=== PATIENT | male | born 1955 | race Caucasian/White ===

== ENCOUNTER → 2020-02-29 15:46 | Outpatient (CLI) | payer OTHER, SELFPAY ==
[2020-02-29 16:47] LABS: Hemoglobin A1C% w Est Avg Glu 10.4 % (4.0-6.0)
[2020-02-29 16:50] LABS: Alanine Aminotransferase 33 IU/L (<50); Albumin 4.2 g/dL (3.5-5.0); Albumin Globulin Ratio 1.4 (1.0-2.8); Alkaline Phosphatase 175 U/L (38-126); Aspartate Aminotransferase 24 IU/L (17-59); BUN Creatinine Ratio 30.8 (6-22); Bilirubin Total 0.3 mg/dL (0.2-1.3); Blood Urea Nitrogen 20 mg/dL (9-20); Calcium 9.1 mg/dL (8.4-10.2); Carbon Dioxide 30 mmol/L (22-32); Chloride 103 mmol/L (98-107); Estimated Glomerular Filt Rate > 60.0 mL/min (>60); Globulin 3.1 g/dL (1.7-4.1); Glucose 267 mg/dL (80-110); HEMOLYSIS 16 (0-50); Potassium 3.9 mmol/L (3.4-5.1); Sodium 136 mmol/L (137-145); Total Protein 7.3 g/dL (6.3-8.2)
[2020-02-29 16:59] LABS: Creatinine Urine Random 87.7 mg/dL
[2020-02-29 17:04] LABS: Microalbumi Creatinin Ratio Ur 11.4 ug/mg CR (<30)
== END ==
PROVIDERS: PCP Registered Nurse; Referring Provider Registered Nurse; Visit Provider Registered Nurse
DX: E11.9 Type 2 diabetes mellitus without complications (principal)
CPT/HCPCS: 36415; 80053; 82043; 82570; 83036

== ENCOUNTER → 2020-12-09 18:25 | Outpatient (CLI) | payer OTHER, SELFPAY ==
--- NOTE | 2020-12-09 18:26 | DI.RAD.S_ITS ---
PROCEDURE: XR KNEE LT 3V INDICATIONS: pain ongoing TECHNIQUE: 3 views of the knee were acquired. COMPARISON: None. FINDINGS: Bones: Moderate osteophytosis and degenerative change of the patellofemoral compartment. Avulsion fracture of the lateral patella. The remaining visualized osseous structures appear maintained. No suspicious bony lesions. Soft tissues: Small joint effusion. No suspicious soft tissue calcifications. IMPRESSION: Avulsion fracture of the lateral patella. Dictated by: Geovanny Handley M.D. on 12/10/2020 at 8:56 Approved by: Geovanny Handley M.D. on 12/10/2020 at 9:00
--- NOTE | 2020-12-09 18:26 | DI.RAD.S_ITS ---
PROCEDURE: XR KNEE RT 3V INDICATIONS: pain ongoing TECHNIQUE: 3 views of the knee were acquired. COMPARISON: None. FINDINGS: Bones: No fractures or dislocations. Mild to moderate arthrosis of the patellofemoral compartment with osteophytosis and contour regularity. Mild medial joint space loss with sclerosis of the tibial plateau. No suspicious bony lesions. Soft tissues: Small joint effusion. No suspicious soft tissue calcifications. IMPRESSION: No acute osseous abnormality. Dictated by: Geovanny Handley M.D. on 12/10/2020 at 9:01 Approved by: Geovanny Handley M.D. on 12/10/2020 at 9:02
== END ==
PROVIDERS: PCP Nurse Practitioner Family; Referring Provider Nurse Practitioner Family; Visit Provider Nurse Practitioner Family
DX: S82.092A Other fracture of left patella, initial encounter for closed fracture; M25.562 Pain in left knee; M25.561 Pain in right knee; G89.29 Other chronic pain; X58.XXXA Exposure to other specified factors, initial encounter
CPT/HCPCS: 73562

== ENCOUNTER → 2021-03-19 16:50 | Outpatient (CLI) | payer OTHER, SELFPAY ==
--- NOTE | 2021-03-19 16:56 | DI.RAD.S_ITS ---
PROCEDURE: XR SHOULDER RT MIN 2V INDICATIONS: pain TECHNIQUE: 3 views of the shoulder were acquired. COMPARISON: None. FINDINGS: Bones: No fractures or dislocations. No suspicious bony lesions. Moderate right shoulder DJD. There is osteophytes at the inferior humeral head and distal clavicle. Visualized ribs appear intact. Soft tissues: No suspicious soft tissue calcifications. IMPRESSION: Moderate right shoulder DJD. Dictated by: Wes Chamberlain M.D. on 03/20/2021 at 8:20 Approved by: Wes Chamberlain M.D. on 03/20/2021 at 8:21
--- NOTE | 2021-03-19 16:56 | DI.RAD.S_ITS ---
PROCEDURE: XR SHOULDER LT MIN 2V INDICATIONS: pain TECHNIQUE: 3 views of the shoulder were acquired. COMPARISON: None. FINDINGS: Bones: No fractures or dislocations. No suspicious bony lesions. Sgsw-ua-baerlmnn degenerative change. Visualized ribs appear intact. Soft tissues: No suspicious soft tissue calcifications. IMPRESSION: Dvfd-as-gnkbyjim left shoulder DJD. Dictated by: Wse Chamberlain M.D. on 03/20/2021 at 8:22 Approved by: Wes Chamberlain M.D. on 03/20/2021 at 8:22
--- NOTE | 2021-03-19 16:56 | DI.RAD.S_ITS ---
PROCEDURE: XR HIP W PEL IF DONE LT 2V INDICATIONS: pain TECHNIQUE: AP pelvis with lateral view(s) of the left hip(s). COMPARISON: None. FINDINGS: Bones: No fractures or dislocations. Pelvic ring appears intact. No suspicious bony lesions. There is an asymmetrically prominent spur off the left superior acetabulum. Mild and symmetric joint space loss between right and left femoroacetabular joints. Soft tissues: The visualized bowel gas pattern is normal. No suspicious soft tissue calcifications. IMPRESSION: 1. Asymmetric left superior acetabular spurring. 2. Otherwise symmetric and mild degeneration. Dictated by: Siena Lowery M.D. on 03/20/2021 at 10:29 Approved by: Siena Lowery M.D. on 03/20/2021 at 10:31
--- NOTE | 2021-03-19 16:56 | DI.RAD.S_ITS ---
PROCEDURE: XR ELBOW LT 2V INDICATIONS: pain TECHNIQUE: 3 views of the elbow were acquired. COMPARISON: None. FINDINGS: Bones: No fractures identified. No dislocations. No suspicious bony lesions. Soft tissues: No posterior elbow joint effusion. No suspicious soft tissue calcifications. IMPRESSION: No acute osseous abnormality. If clinically indicated follow-up radiographs in 10-14 days may be helpful for further evaluation. Dictated by: Wes Chamberlain M.D. on 03/20/2021 at 8:18 Approved by: Wes Chamberlain M.D. on 03/20/2021 at 8:20
== END ==
PROVIDERS: PCP Nurse Practitioner Family; Referring Provider Nurse Practitioner Family; Visit Provider Nurse Practitioner Family
DX: M19.011 Primary osteoarthritis, right shoulder (principal); M19.012 Primary osteoarthritis, left shoulder; M16.12 Unilateral primary osteoarthritis, left hip; M25.50 Pain in unspecified joint
CPT/HCPCS: 73030; 73070; 73502

== ENCOUNTER → 2021-09-10 16:31 | Outpatient (CLI) | payer OTHER, SELFPAY ==
--- NOTE | 2021-09-10 16:33 | DI.RAD.S_ITS ---
PROCEDURE: XR LUMBAR SPINE 2-3V INDICATIONS: chronic back pain TECHNIQUE: 3 views of the lumbar spine were acquired. COMPARISON: None. FINDINGS: Bones: 5 cui-asd-xcqyjgb vertebrae are present. There is normal bony alignment. No vertebral body compression fractures. No suspicious bony lesions. Mild levocurvature. Jicp-st-gyjztmif degenerative disc disease and facet arthropathy throughout the lumbar spine. Soft tissues: Overlying bowel gas pattern is normal. No suspicious soft tissue calcifications. IMPRESSION: Dvpv-ug-cfnjlmmj degenerative disc and facet disease. Dictated by: Alecia Saul M.D. on 09/11/2021 at 17:41 Approved by: Alecia Saul M.D. on 09/11/2021 at 17:42
[2021-09-10 16:56] LABS: Add Manual Diff / Slide Review NO; Basophils Absolute Auto 100 /uL (0-100); Basophils Percent Auto 1.1 % (0-2); Eosinophils Absolute Auto 100 /uL (0-450); Eosinophils Percent Auto 1.5 % (2-4); Hematocrit 44.2 % (41-53); Hemoglobin 16.1 g/dL (13.5-17.5); Lymphocytes Absolute Auto 2700 /uL (1100-4500); Lymphocytes Percent Auto 33.1 % (25-40); Mean Corpuscular HGB Conc 36.4 % (30-36); Mean Corpuscular Hemoglobin 34.2 PG (26-34); Monocytes Absolute Auto 700 /uL (0-900); Monocytes Percent Auto 8.3 % (3-14); Neutrophils Absolute Auto 4500 /uL (1500-7000); Platelet Count 230 X10^3/uL (150-400); White Blood Cell Count 8.1 X10^3/uL (4.5-11.0)
[2021-09-10 17:16] LABS: Hemoglobin A1C% w Est Avg Glu 8.3 % (4.0-6.0)
[2021-09-10 17:21] LABS: Alanine Aminotransferase 24 IU/L (<50); Albumin 4.5 g/dL (3.5-5.0); Albumin Globulin Ratio 1.6 (1.0-2.8); Alkaline Phosphatase 159 U/L (38-126); Aspartate Aminotransferase 23 IU/L (17-59); BUN Creatinine Ratio 30.3 (6-22); Bilirubin Total 0.5 mg/dL (0.2-1.3); Blood Urea Nitrogen 20 mg/dL (9-20); Calcium 9.1 mg/dL (8.4-10.2); Carbon Dioxide 32 mmol/L (22-32); Chloride 98 mmol/L (98-107); Cholesterol 221 mg/dL (140-199); Estimated Glomerular Filt Rate > 60 mL/min (>60); Globulin 2.9 g/dL (1.7-4.1); Glucose 246 mg/dL (80-110); HDL Cholesterol 53 mg/dL (40-60); Potassium 4.4 mmol/L (3.4-5.1); Sodium 135 mmol/L (137-145); Total Protein 7.4 g/dL (6.3-8.2)
[2021-09-10 17:28] LABS: HEMOLYSIS 28 (0-50)
[2021-09-10 17:31] LABS: Triglycerides 788 mg/dL (35-150)
[2021-09-10 17:49] LABS: Prostate Specific Antigen Scrn 0.716 ng/mL (0.1-4.0); TSH w/ Reflex to FT4 1.87 uIU/mL (0.47-4.68)
[2021-09-10 18:21] LABS: Creatinine Urine Random 98.8 mg/dL
[2021-09-10 18:26] LABS: Microalbumi Creatinin Ratio Ur 10.1 ug/mg CR (<30)
== END ==
PROVIDERS: PCP Pediatrics; Referring Provider Pediatrics; Visit Provider Pediatrics
DX: M47.816 Spondylosis without myelopathy or radiculopathy, lumbar region (principal); Z12.5 Encounter for screening for malignant neoplasm of prostate; M51.36 Other intervertebral disc degeneration, lumbar region; Z13.220 Encounter for screening for lipoid disorders; M54.9 Dorsalgia, unspecified; M19.90 Unspecified osteoarthritis, unspecified site; E11.9 Type 2 diabetes mellitus without complications; F32.9 Major depressive disorder, single episode, unspecified; F41.9 Anxiety disorder, unspecified; M25.50 Pain in unspecified joint; G89.29 Other chronic pain
CPT/HCPCS: 36415; 72100; 80053; 80061; 82043; 82570; 83036; 84443; 85025; G0103

== ENCOUNTER → 2021-09-10 16:50 | Outpatient (CLI) | payer OTHER, SELFPAY | PROVIDERS: PCP Pediatrics; Referring Provider Pediatrics; Visit Provider Pediatrics | DX: M54.9 Dorsalgia, unspecified (principal); G89.29 Other chronic pain ==

== ENCOUNTER → 2021-09-29 18:26 | Outpatient (CLI) | payer OTHER, SELFPAY ==
--- NOTE | 2021-09-29 18:30 | DI.MRI.S_ITS ---
PROCEDURE: MR LUMBAR SPINE WO CON INDICATIONS: Dorsalgia, unspecified TECHNIQUE: Noncontrast sagittal T1 spin echo and T2 fast echo, sagittal STIR, and T2 fast spin echo through the lumbar spine. In cases with scoliosis, additional coronal T2 fast spin echo may be performed. COMPARISON: None. FINDINGS: Image quality: Excellent. Alignment and Curvature: There is normal bony alignment. Bone Marrow: Marrow is of normal overall signal. No acute vertebral body compression fractures. Spinal Cord: Conus medullaris terminates at the L1 level. Visualized cord demonstrates normal signal and size. Paraspinous Soft Tissues: No paravertebral masses. T12-L1: Normal appearance. L1-L2: Normal appearance. L2-L3: Disc space narrowing with circumferential disc bulge results in mild central stenosis. Mild bilateral foraminal stenosis. L3-L4: Disc space narrowing with circumferential disc bulge and hypertrophic facet joints results in severe central stenosis. Moderate bilateral foraminal stenosis. L4-L5: A disc space narrowing with circumferential disc bulge and hypertrophic facet joints combined with ligamentum flavum laxity to result in moderate central stenosis. Moderate right and severe left foraminal stenosis L5-S1: Disc space narrowing with circumferential disc bulge present. There is a superimposed central protrusion with inferior migration resulting in pepo-xf-oigdjmlm central stenosis. Severe right and left foraminal stenosis present. IMPRESSION: 1. Multilevel degenerative disc disease and arthropathy results in varying degrees of central and foraminal stenosis including severe central stenosis at L3-4 and severe bilateral foraminal stenosis at L5-S1 Approved by: Robert Fuentes M.D. on 09/30/2021 at 11:52
== END ==
PROVIDERS: PCP Pediatrics; Referring Provider Pediatrics; Visit Provider Pediatrics
DX: M51.36 Other intervertebral disc degeneration, lumbar region (principal); M51.37 Other intervertebral disc degeneration, lumbosacral region; M47.816 Spondylosis without myelopathy or radiculopathy, lumbar region; M47.817 Spondylosis without myelopathy or radiculopathy, lumbosacral region; M48.061 Spinal stenosis, lumbar region without neurogenic claudication; M48.07 Spinal stenosis, lumbosacral region; M54.9 Dorsalgia, unspecified; G89.29 Other chronic pain
CPT/HCPCS: 72148

== ENCOUNTER → 2021-11-14 09:35 | Outpatient (CLI) | payer OTHER, SELFPAY ==
--- NOTE | 2021-11-14 09:36 | DI.CT.S_ITS ---
PROCEDURE: CT UE RT WO CON INDICATIONS: EVAL CUFF AND GLENOID VERSION TECHNIQUE: Noncontrast 1-1.5 mm thick sections acquired from the acromioclavicular joint to the inferior scapula, with coronal and sagittal reformatting. COMPARISON: [facility], CR, XR SHOULDER RT MIN 2V, 03/19/2021, 16:55. FINDINGS: Image quality: Excellent. Bones: There are severe osteoarthritic changes of the glenohumeral joint with joint space narrowing, subchondral sclerosis, and subchondral cystic changes as well as prominent inferior osteophytosis. There is glenoid retroversion of approximately -18?. Mild osteoarthritic changes are demonstrated at the acromioclavicular joint. Soft tissues: No glenohumeral joint effusion. There are a few small indistinct calcifications within the axillary pouch consistent with clustered joint bodies. Limited evaluation of the rotator cuff on CT demonstrates no definite full-thickness tear or tendon retraction. No fatty muscle atrophy. IMPRESSION: 1. Severe osteoarthritic changes of the glenohumeral joint as described. 2. Glenoid retroversion of -18 degrees. 3. No definite full-thickness rotator cuff tear or tendon retraction. Dictated by: Shyam Orosco M.D. on 11/16/2021 at 1:24 Approved by: Shyam Orosco M.D. on 11/16/2021 at 1:29
== END ==
PROVIDERS: PCP Pediatrics; Referring Provider Orthopaedic Surgery; Visit Provider Orthopaedic Surgery
DX: M19.011 Primary osteoarthritis, right shoulder (principal)
CPT/HCPCS: 73200

== ENCOUNTER → 2021-12-25 08:43 | Outpatient (CLI) | payer OTHER, SELFPAY ==
[2021-12-25 11:21] LABS: Add Manual Diff / Slide Review NO; Basophils Absolute Auto 100 /uL (0-100); Basophils Percent Auto 0.9 % (0-2); Eosinophils Absolute Auto 100 /uL (0-450); Eosinophils Percent Auto 1.2 % (2-4); Hematocrit 42.3 % (41-53); Hemoglobin 14.9 g/dL (13.5-17.5); Lymphocytes Absolute Auto 1900 /uL (1100-4500); Lymphocytes Percent Auto 31.6 % (25-40); Mean Corpuscular HGB Conc 35.3 % (30-36); Mean Corpuscular Hemoglobin 32.8 PG (26-34); Mean Corpuscular Volume 93.1 fL (80-100); Monocytes Absolute Auto 400 /uL (0-900); Monocytes Percent Auto 6.9 % (3-14); Neutrophils Absolute Auto 3600 /uL (1500-7000); Neutrophils Percent Auto 59.4 % (50-75); Platelet Count 199 X10^3/uL (150-400); Red Blood Cell Count 4.54 X10^6/uL (4.5-5.9); Red Cell Distribution Width 12.8 % (11.6-14.8)
[2021-12-25 11:56] LABS: BUN Creatinine Ratio 20.3 (6-22); Blood Urea Nitrogen 15 mg/dL (9-20); Calcium 8.9 mg/dL (8.4-10.2); Carbon Dioxide 28 mmol/L (22-32); Chloride 100 mmol/L (98-107); Estimated Glomerular Filt Rate > 60 mL/min (>60); Glucose 181 mg/dL (80-110); HEMOLYSIS < 15 (0-50); Potassium 4.1 mmol/L (3.4-5.1); Sodium 137 mmol/L (137-145)
== END ==
PROVIDERS: PCP Pediatrics; Referring Provider Orthopaedic Surgery; Visit Provider Orthopaedic Surgery
DX: Z01.818 Encounter for other preprocedural examination (principal); M25.511 Pain in right shoulder; Z01.812 Encounter for preprocedural laboratory examination
CPT/HCPCS: 36415; 80048; 85025; 93005; 93010

== ENCOUNTER → 2022-01-18 15:07 | Outpatient (CLI) | payer OTHER, SELFPAY ==
[2022-01-18 17:33] LABS: COVID19 -Nasal RAPID Negative (Negative)
== END ==
PROVIDERS: PCP Pediatrics; Referring Provider Orthopaedic Surgery; Visit Provider Orthopaedic Surgery
DX: Z20.822 Contact with and (suspected) exposure to COVID-19 (principal)
CPT/HCPCS: 87635; C9803

== ENCOUNTER 2022-01-20 07:32 | Day surgery (SDC) | payer OTHER, SELFPAY ==
[2022-01-11 09:36] VITALS: BMI 31.9
--- NOTE | 2022-01-20 08:04 | PM.PREOP ---
Pre-operative Note COVID-19 COVID-19 status: Negative Result date/Date tested (Pos, Neg/Pending): 01/18/22 Interval Note History & Physical reviewed/Exam performed by Physician: Yes Changes to H&P: No
[2022-01-20] MEDS: ACETAMINOPHEN 325 MG TABLET 975 MG PO (08:07)
[2022-01-20] MEDS: PREGABALIN 75 MG CAPSULE PO (08:07)
[2022-01-20] MEDS: CELECOXIB 200 MG CAPSULE PO (08:07)
[2022-01-20] MEDS: LACTATED RINGERS 1,000 ML 100 ML IV (08:09)
[2022-01-20 08:12] VITALS: BP 127/68; PULSE 65; RESP 16; TEMP 36.4; O2SAT 97; BMI 31.9
[2022-01-20 09:20] VITALS: BP 110/68; PULSE 65; RESP 16; O2SAT 98
--- NOTE | 2022-01-20 09:44 | SUR.PREOP ---
Block start time [0753 ] . Monitoring initiated and maintained throughout procedure. Oxygen and medications given per anesthesiologist. Patient remained stable throughout procedure, no adverse reactions noted. Block end time [0818 ].
--- NOTE | 2022-01-20 09:46 | SUR.PREOP ---
see block documentation.
--- NOTE | 2022-01-20 09:47 | SUR.PREOP ---
placed right arm in sling upon discharge.
== END 2022-01-20 07:35 | disposition home or self-care (01) ==
LOC: OR 07:34 → AC 09:50
PROVIDERS: PCP Pediatrics; Referring Provider Orthopaedic Surgery; Visit Provider Orthopaedic Surgery
DX: M19.011 Primary osteoarthritis, right shoulder (principal); Z53.09 Procedure and treatment not carried out because of other contraindication
CPT/HCPCS: 23472; J1100; J2250; J2405; J2704; J3010

== ENCOUNTER 2022-01-22 13:22 | Day surgery (SDC) | payer OTHER, SELFPAY ==
[2022-01-20 15:23] VITALS: BMI 31.6
[2022-01-22] VITALS (14 sets, daily range): BP systolic 91–148; BP diastolic 56–82; PULSE 68–95; RESP 11–24; TEMP 36–37; O2SAT 84–98; BMI 31.6
[2022-01-22] MEDS: LACTATED RINGERS 1,000 ML 42 ML IV ×2 (14:11→17:19)
[2022-01-22 14:13] LABS: COVID19 -Nasal RAPID Negative (Negative)
--- NOTE | 2022-01-22 14:16 | DI.RAD.S_ITS ---
PROCEDURE: XR SHOULDER RT 1V INDICATIONS: post op total shoulder rt TECHNIQUE: A single view of the shoulder were acquired. COMPARISON: [facility], , XR SHOULDER RT MIN 2V, 03/19/2021, 16:55. FINDINGS: Bones: Postoperative changes of total right shoulder replacement without radiographic complication Soft tissues: No suspicious soft tissue calcifications. IMPRESSION: Postoperative changes total right shoulder replacement without radiographic complication Dictated by: Brian Hill M.D. on 01/23/2022 at 10:47 Approved by: Brian Hill M.D. on 01/23/2022 at 10:47
--- NOTE | 2022-01-22 14:16 | PM.PREOP ---
Pre-operative Note COVID-19 COVID-19 status: Negative Result date/Date tested (Pos, Neg/Pending): 01/22/22 Interval Note History & Physical reviewed/Exam performed by Physician: Yes Changes to H&P: No
--- NOTE | 2022-01-22 14:22 | SUR.PREOP ---
Block start time [1420] . Monitoring initiated and maintained throughout procedure. Oxygen and medications given per anesthesiologist instructions. Patient remained stable throughout procedure, no adverse reactions noted. Block end time [1430]. No complications. VSS.
[2022-01-22] MEDS: ACETAMINOPHEN 325 MG TABLET 975 MG PO (14:37)
[2022-01-22] MEDS: CELECOXIB 200 MG CAPSULE PO (14:37)
[2022-01-22] MEDS: PREGABALIN 75 MG CAPSULE PO (14:37)
[2022-01-22] MEDS: CEFAZOLIN 2 GM/100 ML PREMIX 100 ML IV ×2 (15:37→22:20)
[2022-01-22] MEDS: TRANEXAMIC ACID 1,000 MG VIAL 2000 MG INJ ×2 (16:01→17:25)
--- NOTE | 2022-01-22 16:03 | PC.NURSE ---
Day shift: Pt is not on AC unit at this time.
--- NOTE | 2022-01-22 16:13 | SUR.OPER ---
Beach chair with Schlein shoulder positioner. Lower body on padded OR bed. Head in foam padded head cradle, secured with straps. Non-operative arm secured <90 degrees abduction. Pillow under knees. Safety belt at thigh. Cloth tape over blanket over lower legs.
[2022-01-22] MEDS: THROMBIN (RECOMBINANT) 5,000 UNIT VIAL 5000 UNIT TOP (16:22)
[2022-01-22] MEDS: BUPIVACAINE 0.25% (PF) 30 ML, EPINEPHrine 0.3 MG INJ (16:23)
[2022-01-22] MEDS: BUPIVACAINE 0.5% (PF) VIAL 30 ML INJ (16:24)
--- NOTE | 2022-01-22 18:00 | PM.OP.1 ---
Operative Date/Time/Diagnoses Date of procedure: 01/22/22 Time of procedure: 18:00 Pre-op diagnosis: Right shoulder osteoarthritis Post-op diagnosis: same Procedure & Clinicians Procedure: Right total shoulder Same procedure as scheduled: Yes Indications: The patient has had progressively worsening right shoulder pain with radiographic changes consistent with arthritis. Non-operative management has failed and the patient has requested total shoulder replacement. The risks, benefits and alternatives to surgery were discussed with the patient prior to proceeding. Risks discussed included, but were not limited to, failure to relieve pain, stiffness, infection, nerve damage, deep venous thrombosis, pulmonary embolism, stroke, coma, heart attack, permanent paralysis and , as well as the potential need for eventual revision of the prosthetic. Surgeon: Dionisio Wilhelm Machine Container Washer: Mony Givens Click Yes if Unassisted: No Anesthesia Type: General, Peripheral nerve block and Local Operative Notes Findings: Severe osteoarthritis of the right shoulder Closure Type: primary Specimen(s): none sent Prosthetic devices, grafts, tissues, transplants, or devices: Implants used in this procedure manufactured by the [employer] and included a 50 mm all polyethylene pegged glenoid with E plus polyethylene, a size 2 canal sparing humeral stem and a 50 x 18 mm neutral humeral head and neck. Applied: implant(s) Estimated Blood Loss (mL): 300 Blood products transfused: none Procedure in detail: The patient was seen in the pre-operative area, where the patient identified the right shoulder as the operative site and this was marked with my initials. The patient received pre-operative antibiotics, underwent an interscalene block, and was taken to the operating room and placed on the operative table in the supine position. After satisfactory anesthesia, a full ?time out? was performed. The patient was repositioned in the ?beach chair? position using a dedicated positioner. All pressure points were well padded, and the knees were slightly bent to prevent tension on the sciatic nerves. The right arm was prepared from the fingers to the base of the neck with ChloroPrep in the usual fashion and draped through sterile drapes. An approximately 15 cm incision was created, starting at the clavicle above the coracoid process and extended towards the deltoid insertion. The deltopectoral interval was used to access the shoulder. The cephalic vein was taken laterally. A self retaining retractor was placed. The upper centimeter of the pectoralis major tendon was released. The ?three sisters? were identified and cauterized. The axillary nerve was palpated and protected throughout the case. The biceps was released from its groove and tenodesed over the top of the pectoralis major tendon. The subscapularis was released from the lesser tuberosity with a subscapularis peel and tagged for later repair. The shoulder was dislocated and a cutting guide was used for the proximal humeral osteotomy in 30 degrees of retroversion. Osteophytes were removed to appropriately size the humeral head. The guide pin was placed in the center of the proximal humerus using a trial humeral head. The collared Reamer was then used. The central Reamer was used for the body. A size 2 broach was placed. A proximal humeral protector was then placed. We then removed the self-retaining retractor and placed retractors to access the glenoid. The subscapularis was released with a ?360 degree release? with care being taken to protect the axillary nerve with the inferior portion of this procedure. The remnant of labrum and biceps stump were removed. The guide pin placed using the glenoid Sizer. The glenoid was appropriately reamed. The guide for the peripheral holes was used and the center hole enlarged. The trial glenoid was placed with good stability. We then cemented the final implant into place after irrigating the peg holes and drying them with thrombin-soaked Gelfoam. We returned our attention to the humerus, a trial humeral head was applied and a trial reduction performed. Stability was checked with 50% posterior translation with spontaneous reduction, 45? external rotation at the side with the subscapularis held in the repaired position and 70? of internal rotation in the ?scarecrow position?. This was felt to be satisfactory and the appropriate implants were opened. Five holes were drilled along the humeral osteotomy and #2 Ethibond sutures placed for eventual subscapularis repair. The humeral prosthetic was impacted into the humerus. The sutures were placed through the outer ring of the canal sparing stem. The humeral head was applied when the stem was still slightly proud and impacted to both seat the head and fully seat the stem. The joint was relocated one final time. The joint was irrigated and the subscapularis repaired to the previously placed sutures using Vincent-Fredi sutures. The top of the subscapularis was closed to the leading edge of the supraspinatus with a figure of 8 #2 Ethibond to close the rotator interval. The deltopectoral interval was closed with interrupted 0 Vicryl. The subcutaneous layer was closed with 3-0 Vicryl, and the skin with a running 3-0 V-Lock suture and Dermabond. An Aquacel Ag dressing was applied, the patient?s arm was placed in a sling, and the patient was taken to recovery having tolerated the procedure well. The services of Dr. Givens were necessary as a skilled children's nursery assistant to provide exposure, retraction to protect vital structures and positioning to access the glenoid and performed the procedure in a safe and expedient fashion. Without the assistance of a skilled children's nursery assistant procedure could not have been performed safely. Complications: none Post-operative Condition: stable Disposition: PACU Plan for aftercare: The patient will be allowed to use his hand in front of his body below shoulder level for the 1st 2 weeks and then will be advanced according to physical therapy protocol for standard total shoulder protocol. Due to the hour of the completion the procedure he will be admitted to the hospital overnight for pain control and will be discharged tomorrow morning.
--- NOTE | 2022-01-22 18:49 | PC.NURSE ---
Day shift: Pt in room from PACU at approx 1845. A&Ox4. Denies any pain or nausea. CMS ok rt hand. Radial pulse present. Placed on 1L NC and 94%. Oriented to room and call light. Call light in reach.
[2022-01-22] MEDS: ACETAMINOPHEN 325 MG TABLET 650 MG PO (20:31)
[2022-01-22] MEDS: IBUPROFEN 400 MG TABLET PO (20:32)
[2022-01-22] MEDS: METFORMIN XR 500 MG TABLET 1000 MG PO (20:32)
[2022-01-22] MEDS: DOCUSATE 100 MG CAPSULE PO (20:32)
[2022-01-22] MEDS: ASPIRIN EC 81 MG TABLET PO (20:32)
[2022-01-22] MEDS: LACTATED RINGERS 1,000 ML 100 ML IV (20:32)
[2022-01-22] MEDS: hydrOXYzine pamoate 25 MG CAPSULE PO (22:20)
[2022-01-22] MEDS: OXYCODONE IR 5 MG TABLET PO (22:20)
[2022-01-23] MEDS: ACETAMINOPHEN 325 MG TABLET 650 MG PO ×2 (00:33→05:01)
[2022-01-23] MEDS: IBUPROFEN 400 MG TABLET PO ×3 (00:34→08:43)
[2022-01-23] MEDS: OXYCODONE IR 5 MG TABLET PO ×2 (00:34→10:32)
[2022-01-23 04:35] VITALS: BP 121/65; PULSE 74; RESP 16; TEMP 36.8; O2SAT 95
[2022-01-23 05:06] LABS: Hematocrit 39.4 % (41-53); Hemoglobin 13.8 g/dL (13.5-17.5)
[2022-01-23] MEDS: LACTATED RINGERS 1,000 ML 100 ML IV (05:57)
[2022-01-23] MEDS: CEFAZOLIN 2 GM/100 ML PREMIX 100 ML IV (05:57)
--- NOTE | 2022-01-23 08:35 | PT.IIE ---
Current Diagnoses Primary osteoarthritis, right shoulder (01/22/22) Presence of unspecified artificial shoulder joint (01/22/22) Surgery Performed Operation Date: 01/22/22 14:45 Actual Procedures p Total Shoulder Arthroplasty(Right) - Dionisio Wilhelm MD Surgical History (This Medical Record has been edited. Action required.) Anesthesia H/O vasectomy History of hernia repair (~1993) Medical History (This Medical Record has been edited. Action required.) Anxiety (~1989) Carpal tunnel syndrome (~1999) Carpal tunnel syndrome of left wrist (2008) Chicken pox Chronic back pain (~1979) Chronic knee pain Hepatitis (~1969) Joint pain Osteoarthritis (~1994) Patella fracture (11/2020) Positive PPD (~1991) Post-nasal drip Shoulder pain (~1984) Physical Therapy Inpatient Evaluation/Re-Eval M1 PT/OT-IP Prior Functional Status Start: 01/23/22 12:28 Freq: NEEDED Status: Active Protocol: Document 01/23/22 08:35 AB (Rec: 01/23/22 12:39 AB [id number]) Medical Review Prior Functional Status Medical History Reviewed Yes Communication able to make needs known Mobility and Gait pt stated that he is independent with all mobilities and ambulation without AD Social History Household Members spouse,children Living Arrangements House Number of Floors (Floors) Two Floors Number of Stairs To Enter/Railing? 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 M2 PT-IP Current Condition Start: 01/23/22 12:28 Freq: NEEDED Status: Active Protocol: Document 01/23/22 08:35 AB (Rec: 01/23/22 12:39 AB [id number]) Physical Therapy Current Condition Current Condition Evaluation Date 01/23/22 Treatment Diagnosis s/p R TSA; difficulty in walking Onset Date 01/22/22 M3 PT-IP Subjective Start: 01/23/22 12:28 Freq: NEEDED Status: Active Protocol: Document 01/23/22 08:35 AB (Rec: 01/23/22 12:39 AB [id number]) Subjective Physical Therapy Visit Type Type Initial Evaluation Visit Start Time 08:35 Visit Stop Time 09:25 Total Visit Minutes 50 Number of COMPRESS TRUCKER Visits 0 Physical Therapy Visit Comments Patient Comments agreeable to do PT Therapy Pain Assessment Pain When Pain Assessed At Rest Pain Present Pain Present Pain Reported Location Right Shoulder Intensity 1 Scale Used Numeric (0 - 10) Pain Management Techniques Apply Cold,Modification of Treatment,Re-positioning, Timing of Activity with Medications M4 PT-IP Mobility and Gait Start: 01/23/22 12:28 Freq: NEEDED Status: Active Protocol: Document 01/23/22 08:35 AB (Rec: 01/23/22 12:39 AB [id number]) PT-Bed Mobility Assessment Supine to Sit Supine to Sit Standby Assistance PT-Transfer Assessment Sit to and From Stand Sit to and from Stand Standby Assistance Equipment Transfer Assistive Device Gait Belt Orthotic/Prosthetic Devices or Brace: Yes Transfers Transfer Destination Chair Transfer Technique Stand Step Pivot Transfer Ability Level of Assist Standby Assistance Comments Mobility Comments educated pt on shoulder precautions, pendulum exercise , elbow/wrist/hand exercises. pt completed supine to sit SBA . able to sit on EOB SBA. cued not to use R shoulder. educated on sling management. pt attempted to don sling but unable by himself and stated that he will have his spouse to assist him. declined caregiver training and stated that he can tell his spouse on how to manage sling. pt completed pendulum, elbow/ wrist/hand exercises. cues for safety and also educated on dressing techniques. pt ambulated in the hallway ~ 200 ft without AD SBA. completed up/down steps using L rail ascending SBA. ambulated back to his room. agreed to sit up on the chair. positioned on the chair. call light and table placed within reach. Gait Assessment Gait Gait Assistance Required: Standby Assistance Distance (Feet) 200 Able to Maintain Weight Bearing Status Yes During Gait Assistive Devices Assistive Device None,Gait Belt Orthotic/Prosthetic Devices or Brace: Yes Factors Limiting Gait Function Factors Limiting Gait Function Decreased Strength,Limited Range of Motion,Pain,Poor Balance Stair Climbing Assessment Evaluation Level of Assist On Stairs Standby Assistance Devices Stair Climbing Assistive Devices Left Railing Technique/Endurance Stair Climbing Technique Step Over Step Number of Steps Climbed 3 Query Text: Stair Climbing Set # Repetitions (reps) 2 PT-Balance Assessment Sitting Balance and Reactions Static Sitting Balance Ability Normal Dynamic Sitting Balance Ability Normal Standing Balance and Reactions Static Standing Balance Ability Good Dynamic Standing Balance Ability Good Device Used without AD M5 PT-IP Objective Assessments Start: 01/23/22 12:28 Freq: NEEDED Status: Active Protocol: Document 01/23/22 08:35 AB (Rec: 01/23/22 12:39 AB [id number]) Orientation Orientation/Cognition Level of Alertness Alert Orientation Name,Place,Situation Language Function Ability No Deficits Noted Safety Awareness Understands Safety Issues, Decreased Safety Awareness Memory Description No Deficits Noted Gross Range of Motion Lower Extremity ROM Assessment Within Functional Limits Strength Lower Extremity Strength Assessment Within Functional Limits Coordination Assessment Gross Coordination Gross Coordination WNL Sensation Assessment Sensation Gross Sensation WNL Muscle Tone Muscle Tone WNL Yes M6 PT-IP Treatment Start: 01/23/22 12:28 Freq: NEEDED Status: Active Protocol: Document 01/23/22 08:35 AB (Rec: 01/23/22 12:39 AB [id number]) Physical Therapy Treatment Exercises Exercises Shoulder Pendulums,Elbow Flexion/Extension,Wrist ROM, Hand ROM Education Education Provided Precautions,Weight Bearing Status,Post-Op Packet,Safety Brace Education Donning,Forest,Patient M7 PT-IP Assessment and Plan Start: 01/23/22 12:28 Freq: NEEDED Status: Active Protocol: Document 01/23/22 08:35 AB (Rec: 01/23/22 12:39 AB [id number]) PT Summary Assessment and Plan Potential Rehabilitation Potential Good Status of Condition at Evaluation Stable Summary Impairments Pain,ROM,Strength,Balance, Coordination,Sensation,Tone, Cognition,Bed Mobility, Transfers,Gait,Activity Tolerance Assessment Summary pt requiring SBA with mobility and plans to go home with spouse to assist him. pt has outpt PT scheduled. pt may go home when medically stable Goals Transfer Goal Independent Gait Goal Independent Gait Distance 300 Other Goals up/down 2 flights of steps L rail ascending mod I Days to Meet Goals 5 Frequency of Treatment Frequency Of Treatment Twice a Day Treatment Plan Physical Therapy Treatment Plan Bed Mobility Training,Transfer Training,Gait Training, Therapeutic Exercise,Balance Retraining,Post Op Education, Discharge Planning,Hot or Cold Pack,Neuromuscular Re-ed, Coordination Retraining,Manual Therapy Precautions Shoulder Precautions Sling,PROM,Internal Rotation to Body,No External Rotation, No Abduction,Forward Flexion to 90 degrees,Pendulums Weight Bearing Status Weight Bearing Status Non-Weight Bearing Allowed Weight Bearing Amount (enter % RUE NWB or #) (%) Recommendations To Nursing Amount of Assist Needed Standby Assistance Discharge Recommendations PT Discharge Recommendations Home with Assistance, Outpatient PT Transportation Needs at Discharge Private Vehicle
[2022-01-23] MEDS: buPROPion XL 150 MG TAB PO (08:43)
[2022-01-23] MEDS: METFORMIN XR 500 MG TABLET 1000 MG PO (08:43)
[2022-01-23] MEDS: ASPIRIN EC 81 MG TABLET PO (08:43)
[2022-01-23] MEDS: DOCUSATE 100 MG CAPSULE PO (08:43)
[2022-01-23] MEDS: SERTRALINE 50 MG TABLET 100 MG PO (08:43)
[2022-01-23] MEDS: INSULIN LISPRO 100 UNIT/ML 3ML VIAL SUBCUT (08:44)
[2022-01-23 09:13] VITALS: BP 110/54; PULSE 79; RESP 16; TEMP 37.1; O2SAT 93
--- NOTE | 2022-01-23 09:23 | PM.DS.1 ---
History of Present Illness History of Present Illness Date Patient Seen: 01/23/22 Time Patient Seen: 09:24 Chief complaint: OPB Narrative: Operative Date/Time/Diagnoses Date of procedure: 01/22/22 Time of procedure: 18:00 Pre-op diagnosis: Right shoulder osteoarthritis Post-op diagnosis: same Procedure & Clinicians Procedure: Right total shoulder Same procedure as scheduled: Yes Indications: The patient has had progressively worsening right shoulder pain with radiographic changes consistent with arthritis. Non-operative management has failed and the patient has requested total shoulder replacement. The risks, benefits and alternatives to surgery were discussed with the patient prior to proceeding. Risks discussed included, but were not limited to, failure to relieve pain, stiffness, infection, nerve damage, deep venous thrombosis, pulmonary embolism, stroke, coma, heart attack, permanent paralysis and , as well as the potential need for eventual revision of the prosthetic. Surgeon: Dionisio Wilhelm Splicer Helper: Mony Givens Click Yes if Unassisted: No Anesthesia Type: General, Peripheral nerve block and Local Operative Notes Findings: Severe osteoarthritis of the right shoulder Closure Type: primary Specimen(s): none sent Prosthetic devices, grafts, tissues, transplants, or devices: Implants used in this procedure manufactured by the [employer] and included a 50 mm all polyethylene pegged glenoid with E plus polyethylene, a size 2 canal sparing humeral stem and a 50 x 18 mm neutral humeral head and neck. Applied: implant(s) Estimated Blood Loss (mL): 300 Blood products transfused: none Discharge Providers Provider Discharge Date: 01/23/22 Primary care physician: Kt Baker MD Consults: 01/22/22 14:15 Consult to Anesthesiology Routine Comment: Consulting Provider: Anesthesiologist Reason for consultation: Regional block for post operative pain control 01/22/22 18:49 Consult to Discharge Planning Routine Comment: Consult to Physical Therapy Evaluate & Treat Comment: Physician Instructions: pendulums, PROM FF 90, ER 0, ABD 0, IR to body Discharge provider: Brianna Pastrana PA-C Summary Hospital Course Discharge Diagnosis: Right shoulder osteoarthritis, s/p total shoulder arthroplasty Hospital Course: Mr Gentile'tiara hospital course was unremarkable. On POD# 1 he was feeling well and wanted to go home. He was eating and voiding without difficulty and his pain was well-controlled w/ oral medications. 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 Aquacel dressing CDI, sling in place. Objective Labs Result Diagrams: 01/23/22 04:43 Labs: Laboratory Results - last 24 hr 01/22/22 01/23/22 13:48 04:43 Hgb 13.8 Hct 39.4 L SARS-CoV-2 (PCR) Negative [facility] Medical History (Updated 01/11/22 @ 10:13 by Arleen Cardenas RN) Anxiety (~1989) Carpal tunnel syndrome (~1999) Carpal tunnel syndrome of left wrist (2008) Chicken pox Chronic back pain (~1979) Chronic knee pain Hepatitis (~1969) Joint pain Osteoarthritis (~1994) Patella fracture (11/2020) Positive PPD (~1991) Post-nasal drip Shoulder pain (~1984) Surgical History (Updated 01/23/22 @ 09:32 by Brianna Pastrana PA-C) Anesthesia H/O vasectomy History of hernia repair (~1993) Family History (System 12/10/20 @ 10:14 by Zak Sheehan) Mother Diabetes mellitus Social History (System 12/10/20 @ 10:14 by Zak Sheehan) household members: spouse and children Smoking Status: Never smoker second hand exposure: No alcohol intake: former substance use type: does not use Discharge Assessment & Plan Assessment and Plan Assessment: Right shoulder osteoarthritis, s/p total shoulder arthroplasty Plan of Treatment: Discharge home. Multimodal pain control, outpt PT. Discharge Plan Discharge Plan Patient Disposition: Home Discharge orders & Medications Discharge Orders: Discharge (Order); Ordered 01/23/22 Ordered By: Brianna Pastrana Prescriptions: New oxycodone 5 mg Tablet 5 mg PO Q4H PRN (Reason: Pain, Moderate (4-6)) Qty: 60 0RF acetaminophen 325 mg Tablet 650 mg PO Q6HR Qty: 240 0RF aspirin 81 mg Tablet,Delayed Release (Dr/Ec) 81 mg PO BID Qty: 90 0RF docusate sodium 100 mg Capsule 100 mg PO BID PRN (Reason: constipation) Qty: 60 1RF hydroxyzine pamoate 25 mg Capsule 25 mg PO Q6H PRN (Reason: muscle spasm) Qty: 60 0RF Continued bupropion HCl 150 mg tablet extended release 24 hr See Rx Instructions .ROUTE .COMPLEX Qty: 90 0RF Dose Instruction: TAKE 1 TABLET BY MOUTH ONCE DAILY IN THE MORNING for anxiety with depression Rx Instructions: TAKE 1 TABLET BY MOUTH ONCE DAILY IN THE MORNING for anxiety with depression sertraline 100 mg tablet See Rx Instructions .ROUTE .COMPLEX Qty: 90 0RF Dose Instruction: TAKE ONE TABLET BY MOUTH ONE TIME DAILY for anxiety with depression Rx Instructions: TAKE ONE TABLET BY MOUTH ONE TIME DAILY for anxiety with depression metformin 500 mg tablet extended release 24 hr 1,000 mg PO BID Qty: 360 0RF ibuprofen 200 mg Tablet 400 mg PO DAILY PRN (Reason: Pain) naproxen sodium [Aleve] 220 mg Capsule 440 mg PO DAILY PRN (Reason: Pain) Follow up/Referrals: Kt Baker MD [Primary Care Provider] - Dionisio Wilhelm MD [Physician] - As previously scheduled (Follow up w/ Dr Wilhelm on 02/04/2022 @ 1:30 pm at [facility] in [place]) Diet/Activity/Treatments Diet: Diet as Tolerated Activity: You may use your hand in front of his body below shoulder level for the 1st 2 weeks and then will advance according to physical therapy protocol for standard total shoulder protocol. Sling on at most times; may have off to shower. Cold/Heat Therapy: Ice to shoulder as needed for pain. Skin/Wound/Dressing Care Report to your healthcare provider any signs of infection, such as:: chills, fever, night sweats, unusual drainage and unusual redness Dressing: May shower; leave Aquacel dressing in place until follow up appointment in office. No soaking incision. Call the office if the dressing somehow becomes saturated inside. Visit Report/Discharge Packet Instructions: DI for Shoulder Replacement Stand Alone Forms: Surgery Discharge Discharge Data Primary Care Provider: Kt Baker Attending Provider: Dionisio Wilhelm Quality VTE Deep Vein Thrombosis/Pulmonary Embolism Present on Admission: No
--- NOTE | 2022-01-23 10:37 | PC.NURSE ---
Day shift: Paperwork signed and all question sanswered. VS remain WNL. CMS ok. Aquacel CDI. Spouse in room for d/c teachings. Pt has all personal belonings. scripts sent electronic to Pt's pharmacy. Left unit via WC at approx [phone]. Taken to car by LUIZ Bacon. Pt's Spouse will be driving them home today.
--- NOTE | 2022-01-23 12:35 | CM.DANOTE ---
DCP: Case received, EMR reviewed and met with patient. Spouse, Pamela, was also at bedside. Introduced self and role. Was able to obtain information regarding patient's baseline activity level prior to surgery. DCP assessment completed with information currently available. Patient is a 66 year old male who admitted yesterday morning to the care of the orthopedic team. PCP: Dr. Baker. Payer: confirmed: [facility]. Patient came to the hospital via private vehicle for a surgical procedure. Patient had right total surgery surgery. Patient has history of osteoarthritis. Met briefly with patient and spouse, patient discharging, and getting ready to leave. He was mobile, had his arm in a sling. Confirmed that he resides in [place] with spouse, Pamela. He is independent at his baseline, and is employed at [employer]. He has already completed his P.T. session, and notes indicate that he is independent with all mobilities. He does have some stairs in the home. He is set up with outpatient P.T. P: Patient is discharging home today and will pursue outpatient P.T. Shayla Pickard RN/Qa Internship Discharge Planning/Care Management Advanced directive, confirm from FAMILY Start: 01/22/22 21:05 Freq: Q24H Status: Discharge Protocol: Document 01/22/22 21:07 MS (Rec: 01/22/22 21:07 MS [id number]) Advance Directive, confirm on record Time 21:07 Person contacted Pt Copy received No CM Discharge Assessment Start: 01/23/22 12:32 Freq: Status: Active Protocol: Document 01/23/22 12:32 (Rec: 01/23/22 12:35 [id number]) Discharge Planning Assessment Assigned Mobility Architect Shayla Pickard RN/Qa Internship Advance Directives? No Advance Directives on File No History Provided By Patient,Medical Record Prior Living Arrangements House Household Members spouse,children Type of transporation used prior to Drives own vehicle admit Independent with ADL's Yes Is patient alert and oriented? Yes Caregiver for Another No Patient/Family Preference OP PT Therapy Barriers to Discharge No Discharge Plan Home Referrals Initiated None needed Whiteboard Updated in Patient Room with No name and ext. # of Mobility Architect Comment Patient was getting ready to leave with spouse. Review Status In Process Next Review Type Continued Stay Review Pre-Anesthesia Assessment Start: 01/20/22 15:23 Freq: Status: Complete Protocol: Document 01/20/22 15:23 CAB (Rec: 01/20/22 15:28 CAB [id number]) Pre-Anesthesia Assessment PAC Comment Patient's original surgery 01/20/22 rescheduled to 01/22/22. PAC assessment on 01/11/22 applied to this surgery Preferred Name Michael Patient Information Reviewed Via Chart Review Diagnostic Results BMP/CMP,CBC,EKG Comment Labs/ECG @ [facility] 12/25/21, COVID screen @ [facility] not identified Primary Care Provider Kt Baker Seen Specialist in Last 12 Months Yes Specialist Seen Orthopedist Primary Language Citizen Of [place] Inspector Soldering Required No Height 5 ft 5.39 in Weight 192 lb 0.009 oz Body Mass Index (BMI) 31.6 Hearing Ability Normal Visual Assist Glasses Barriers to Learning None Hx Anesthesia Reactions No Hx Family Anesthesia Reaction No Hx Malignant Hyperthermia No Hx Blood Transfusions No Anesthesia Review Requested No alcohol intake former Smoking Status Never smoker Substance Use Type does not use Pain Present Pain Reported Musculoskeletal Symptoms Arthralgias,Back Pain,Joint Pain,Limited Range of Motion History of Falling (Recent or History of No ) Patient is completely paralyzed or No completely immobile Mental Status Oriented to own ability Is patient on oxygen? 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 No Cardiac Clearance Received No Diet Type At Home Regular Dysphagia No Gastrointestinal Symptoms None Chronic UTI No Urinary Catheter Present No Hx Urinary Self Catheterization No Diabetes Yes: Pt does not check blood sugars HgbA1C 8.3 Date 09/10/21 Hx Drug Resistant Organism No Presence of External or Internal Medical No Devices Have you had any close contact with No someone diagnosed with COVID-19? Received a COVID vaccine? Yes Received all doses? No Lives With spouse,children Current Living Arrangements House Number of Floors (Floors) Two Floors Does the Patient Have Assistance After Yes Surgery Patient Discharge Plan Description Return Home Comment Pt advised possible same day surgery per surgeon Feels Safe in Current Environment Yes Been Physically Hurt or Threatened By a No Person in Current Environment Do you have thoughts of harming yourself None or others? Are you currently considering suicide? No Do you have a plan to hurt yourself or No Plan others? Do You Have Any Spiritual Beliefs That No May Affect Your HC Choices? Do You Have Any Cultural Practices That No May Affect Your HC Choices? Comment Faith Who Can We Speak to About Patient's Care Family, friends Identifying Code for Release of Patient Declines to issue Information Health Care Proxy/Next of Kin Pamela () Health Care Proxy Emergency Contact Name Pamela () Emergency Contact Advance Directives? No Power of Tipple Greaser No PAC Instructions Diabetes instructions,Durable medical equipment,Medications to take/avoid,Nasal antibiotic ,No ETOH/petroleum product on skin DOS,NPO,Post-op transportation,Pre-surgical wash,Sensory aids,Sturdy shoes /comfortable clothes,Do not bring valuables and remove jewelry
== END 2022-01-23 11:02 | disposition home or self-care (01) ==
LOC: OR 13:24 → AC 13:24
PROVIDERS: PCP Pediatrics; Referring Provider Orthopaedic Surgery; Visit Provider Orthopaedic Surgery
PROC: 0RQJ0ZZ Repair Right Shoulder Joint, Open Approach (ICD-10-PCS; CPT 23472; principal; 2022-01-22 14:45)
DX: M19.011 Primary osteoarthritis, right shoulder (principal); Z20.822 Contact with and (suspected) exposure to COVID-19; G89.18 Other acute postprocedural pain
CPT/HCPCS: 23472; 36415; 64450; 73020; 82962; 85014; 85018; 87635; 97161; 97530; C1776; C9803; J0171; J0690; J1100; J1815; J2250; J2405; J2704; J3010

== ENCOUNTER → 2022-09-15 18:48 | Outpatient (ROUT) | payer OTHER, SELFPAY ==
[2022-01-22 20:53] VITALS: BMI 31.6
[2022-09-17 19:36] LABS: Fecal Immunochemical Test Negative (Negative)
== END ==
PROVIDERS: PCP Family Medicine; Visit Provider Family Medicine
DX: Z12.11 Encounter for screening for malignant neoplasm of colon (principal)
CPT/HCPCS: 82274

== ENCOUNTER → 2023-02-17 14:42 | Outpatient (CLI) | payer MEDICARE, OTHER, SELFPAY ==
[2022-01-22 20:53] VITALS: BMI 31.6
== END ==
PROVIDERS: PCP Family Medicine; Referring Provider Family Medicine; Visit Provider Family Medicine
DX: Z01.818 Encounter for other preprocedural examination (principal)
CPT/HCPCS: 93005

== ENCOUNTER → 2023-08-02 08:25 | Outpatient (CLI) | payer MEDICARE, OTHER, SELFPAY ==
[2022-01-22 20:53] VITALS: BMI 31.6
[2023-08-02 09:20] LABS: Alanine Aminotransferase 16 IU/L (<50); Albumin 4.3 g/dL (3.5-5.0); Albumin Globulin Ratio 1.4 (1.0-2.8); Alkaline Phosphatase 118 U/L (38-126); Aspartate Aminotransferase 20 IU/L (17-59); BUN Creatinine Ratio 17.8 (6-22); Bilirubin Total 0.5 mg/dL (0.2-1.3); Blood Urea Nitrogen 13 mg/dL (9-20); Carbon Dioxide 30 mmol/L (22-32); Chloride 104 mmol/L (98-107); Cholesterol 199 mg/dL (140-199); Estimated Glomerular Filt Rate > 60 mL/min (>60); Globulin 3.1 g/dL (1.7-4.1); Glucose 131 mg/dL (80-110); HDL Cholesterol 62 mg/dL (40-60); HEMOLYSIS < 15 (0-50); LDL Cholesterol Calculated 100 mg/dL (<100); Potassium 4.8 mmol/L (3.4-5.1); Sodium 139 mmol/L (137-145); Total Protein 7.4 g/dL (6.3-8.2); Triglycerides 186 mg/dL (35-150)
[2023-08-02 09:26] LABS: High Sensitivity CRP - Cardiac 1.5 mg/L (1.0-3.0)
== END ==
PROVIDERS: PCP Family Medicine; Referring Provider Family Medicine; Visit Provider Family Medicine
DX: F41.9 Anxiety disorder, unspecified (principal); E11.9 Type 2 diabetes mellitus without complications; F32.9 Major depressive disorder, single episode, unspecified
CPT/HCPCS: 36415; 80053; 80061; 86140

== ENCOUNTER → 2024-08-30 16:20 | Outpatient (CLI) | payer MEDICARE, OTHER, SELFPAY ==
[2022-01-22 20:53] VITALS: BMI 31.6
[2024-08-30 17:52] LABS: Hemoglobin A1C% w Est Avg Glu 6.4 % (4.0-6.0)
== END ==
PROVIDERS: PCP Family Medicine; Referring Provider Family Medicine; Visit Provider Family Medicine
DX: E11.9 Type 2 diabetes mellitus without complications (principal)
CPT/HCPCS: 36415; 83036